=== PATIENT | male | born 1960 | race Caucasian/White ===

== ENCOUNTER 2017-04-30 12:34 | Emergency (ER) | payer OTHER ==
[2017-04-30 13:01] VITALS: BP 95/56
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
== END 2017-04-30 13:39 | disposition home or self-care (01) ==
LOC: UCCORT 12:34
DX: S06.0X0A Concussion without loss of consciousness, initial encounter (principal); V29.9XXA Motorcycle rider (driver) (passenger) injured in unspecified traffic accident, initial encounter; Y92.9 Unspecified place or not applicable; F17.210 Nicotine dependence, cigarettes, uncomplicated
CPT/HCPCS: 99212; G0463